=== PATIENT | female | born 1950 ===

== ENCOUNTER 2018-10-01 05:26 | Inpatient (IN) | payer OTHER ==
--- NOTE | 2018-09-30 15:13 | NUR ---
Write.my translation services used to obtained medical history of the patient with portable trackman : rakel ID# [id number].
[2018-10-01] VITALS (14 sets, daily range): BP systolic 100–135; BP diastolic 54–76
[~2018-10-01] VITALS: Ht 160 cm; Wt 74.8 kg
[~2018-10-01 05:26] MED LIST: NKM
[2018-10-01] MEDS ORDERED: ceFAZolin 1gm IVPB IVPB ONE ×2 (06:00)
[2018-10-01] MEDS ORDERED: oxyCONTIN 20mg tab ORAL ONE (06:00)
[2018-10-01] MEDS ORDERED: celeBREX 200mg Cap **SURGERY PATIENTS ONLY ORAL ONE (06:00)
[2018-10-01] MEDS ORDERED: fentaNYL 100 mcg/2 mL IV ONE (06:27)
[2018-10-01] MEDS ORDERED: Lidocaine 1% MPF 10mg/ml 5ml ONE ×2 (06:27→06:28)
[2018-10-01] MEDS ORDERED: Propofol 200mg/20ml IV ONE (06:27)
[2018-10-01] MEDS ORDERED: Midazolam 2mg/2ml Inj ONE (06:27)
[2018-10-01] MEDS ORDERED: Ropivacaine 5mg/ml Vial 30ml INJ ONE (06:28)
[2018-10-01] MEDS ORDERED: EPINEPHrine 1mg/1ml Amp ONE (06:31)
[2018-10-01] MEDS ORDERED: NeoSporin Gu Irrig 1ml Amp IRRIG ONE (06:31)
[2018-10-01] MEDS ORDERED: Bacitracin 50000 Units Vial ONE (06:31)
--- NOTE | 2018-10-01 06:58 | Pre-Procedure Note/Attestation ---
Pre-Procedure Note/Attestation Complete Prior to Procedure Planned Procedure: left Procedure Narrative: left total knee arthroplasty Indications for Procedure Pre-Operative Diagnosis: left knee arthritis Attestation I attest that I discussed the nature of the procedure; its benefits; risks and complications; and alternatives (and the risks and benefits of such alternatives ), prior to the procedure, with the patient (or the patient's legal automobile rental representative). I attest that, if there was a reasonable possibility of needing a blood transfusion, the patient (or the patient's legal automobile rental representative) was given the [facility] standardized written summary, pursuant to the Sly Jessica Blood Safety Act ([place] Health and Safety Code # 1645, as amended). I attest that I re-evaluated the patient just prior to the surgery and that there has been no change in the patient's H&P, except as documented below: none Gen Paniagua MD Oct 01, 2018 06:58
[2018-10-01] MEDS ORDERED: Tranexamic Acid 1,000 MG in NS 55 ML IV ONE (07:00)
[2018-10-01] MEDS ORDERED: NS Irrig 2000ml IRRIG ONE ×2 (07:14→07:30)
[2018-10-01] MEDS ORDERED: NS Irrig 1000ml IRRIG ONE (07:14)
[2018-10-01] MEDS ORDERED: HYDROmorphone 1mg/ml Carpuject SUBQ PRN (07:15)
[2018-10-01] MEDS ORDERED: HYDROcodone/Acetamin 5/325 tab ORAL PRN (07:15)
[2018-10-01] MEDS ORDERED: Milk of Magnesia 30ml Ud ORAL PRN (07:15)
[2018-10-01] MEDS ORDERED: Sterile Water For Irrig 2000ml IRRIG ONE (07:30)
[2018-10-01] MEDS ORDERED: LR 1000ml ONE (07:30)
[2018-10-01] MEDS ORDERED: NS Irrig 1000ml ONE (07:30)
--- NOTE | 2018-10-01 08:10 | Anethesia Preoperative Eval ---
Anesthesia Pre-op PMH/ROS General Date of Evaluation: Oct 01, 2018 Time of Evaluation: 06:52 Anesthesiologist: Abimbola ASA Score: ASA 2 Mallampati Score Class I : Soft palate, uvula, fauces, pillars visible Class II: Soft palate, uvula, fauces visible Class III: Soft palate, base of uvula visible Class IV: Only hard plate visible Mallampati Classification: Class II Surgeon: Siva Diagnosis: L knee DJD Surgical Procedure: L knee arthroplasty Anesthesia History: none Family History: no anesthesia problems Allergies: Coded Allergies: No Known Allergies (Unverified , 10/01/18) Patient NPO?: Yes NPO Date: Sep 30, 2018 NPO Time: 1999 Past Medical History Cardiovascular: Denies: HTN, CAD, NE, valve dz, arrhythmia, other Pulmonary: Denies: asthma, COPD, ANNALEE, other Gastrointestinal/Genitourinary: Reports: GERD; Denies: CRI, ESRD, other Neurologic/Psychiatric: Reports: other - chronic pain; Denies: dementia, CVA, depression/anxiety, TIA Endocrine: Denies: DM, hypothyroidism, steroids, other HEENT: Denies: cataract (L), cataract (R), glaucoma, KASHIA (L), KASHIA (R), other Hematology/Immune: Denies: anemia, DVT, bleeding disorder, other Musculoskeletal/Integumentary: Reports: OA, DJD; Denies: RA, DDD, edema, other Other: other - overweight PMH Narrative: as above PSxH Narrative: L knee arthroscopy, R bunionectomy Anesthesia Pre-op Phys. Exam Physician Exam Last Vital Signs Date Time Temp Pulse Resp B/P (MAP) Pulse Ox O2 Delivery O2 Flow Rate FiO2 10/01/18 05:53 Room Air 10/01/18 05:52 97.8 56 18 135/61 (85) 97 Constitutional: NAD Neurologic: CN 2-12 intact Cardiovascular: RRR Respiratory: CTA Gastrointestinal: S/NT/ND Airway Exam Mallampati Score: Class II MO: full Neck: flexible ROM: full Teeth: missing Dentures: no upper, no lower Anesthesia Pre-op A/P Labs see chart Studies Pre-op Studies: EKG - NSR Risk Assessment & Plan Assessment: ASA 2 Plan: SAB vs GA with femoral nerve block for postop pain control Status Change Before Surgery: No Pre-Antibiotics Drug: Ancef 2gr. Given Within 1 Hr of Incision: Yes Time Given: 07:25 Roman Daily MD Oct 01, 2018 08:10
[2018-10-01] MEDS ORDERED: LR 1000ml 1,000 ML IVLG SCH (08:11)
[2018-10-01] MEDS ORDERED: DiphenhydrAMINE 50mg/ml Inj IVP PRN (08:15)
[2018-10-01] MEDS ORDERED: Hydromorphone 0.5mg/0.5ml inj IVP PRN (08:15)
[2018-10-01] MEDS ORDERED: Ketorolac 30mg Inj IV PRN (08:15)
[2018-10-01] MEDS: Docusate 100mg cap ORAL SCH ×3 (09:00→17:26)
[2018-10-01] MEDS: oxyCONTIN 20mg tab ORAL SCH ×2 (09:00→21:22)
[2018-10-01] MEDS: celeBREX 200mg Cap **SURGERY PATIENTS ONLY ORAL SCH (09:00)
--- NOTE | 2018-10-01 09:38 | Brief Operative Note ---
Immediate Post Operative Note Operative Note Chief Complaint: left knee pain Pre-op Diagnosis: left knee arthritis Procedure: left total knee arthroplasty Post-op Diagnosis: same as pre-op Findings: consistent w/pre-op dx studies Surgeon: md mariangel Napping Machine Operator: ajay martinez Anesthesiologist: md whit Anesthesia: general Specimen: yes Complications: none Condition: stable Fluids: ns Estimated Blood Loss: minimal Drains: none Implant(s) used?: Yes - gonzalez and nephMegan Terry Oct 01, 2018 09:37
--- NOTE | 2018-10-01 09:50 | Immediate Post-Op Evaluation ---
Immediate Post-Op Evalulation Immediate Post-Op Evalulation Procedure: L TKA Date of Evaluation: Oct 01, 2018 Time of Evaluation: 09:49 IV Fluids: 1700 Blood Products: none Estimated Blood Loss: 100 Urinary Output: 150 Blood Pressure Systolic: 126 Blood Pressure Diastolic: 72 Pulse Rate: 65 Respiratory Rate: 20 O2 Sat by Pulse Oximetry: 99 Temperature (Fahrenheit): 97.7 Pain Score (1-10): 1 Nausea: No Vomiting: No Complications none Patient Status: awake, patent, none Hydration Status: adequate Roman Daily MD Oct 01, 2018 09:50
[2018-10-01] MEDS: D5 1/2NS w/KCl 20mEq 1,000 ML IV SCH ×2 (11:00→14:53)
--- NOTE | 2018-10-01 11:00 | NUR ---
NURSE NOTES:RECEIVED FR. PACU BY BED,S/P LEFT KNEE ARTHROPLASTY,SLEEPY BUT AROUSABLE,UNDER GENERAL/LEFT FEMORAL ANESTHESIA.PATIENT HAS SENSATION ON LEFT UPPER THIGH,LEFT KNEE DRSNG.C/D/I. NO C/O PAIN.WITH IMMOBILIZER ON.ON 2 LITERS N/C,GREEK SPEAKING WITH MINIMAL LIBYAN,DAUGHTER AT BEDSIDE.PLAN OF CARE DISCUSSED,WILL MONITOR
--- NOTE | 2018-10-01 11:56 | Diagnostic Imaging Report ---
Indications: Postoperative, status post left knee total arthroplasty Technique: Two views of the left knee Comparison: None Findings: Two postoperative views of the left knee demonstrate total knee arthroplasty, good anatomic alignment of the prosthesis. There is postsurgical soft tissue air. Overlying skin roland. Impression: Postoperative left knee, no unusual features.
--- NOTE | 2018-10-01 12:30 | NUR ---
NURSE NOTES:Neuro assessment done,patient has sensation on whole left knee,able to wiggle toes.tolerated clear liquid diet.
--- NOTE | 2018-10-01 13:30 | NUR ---
NURSE NOTES:on cpm at 45 deg.medicated for pain 7/10 with dilaudid 2mg.suq.with relief after 30 minutes,sleeping no adverse reaction.
[2018-10-01] MEDS: ceFAZolin sod 1 GM in D5W 55 ML IV SCH ×2 (14:53→23:01)
--- NOTE | 2018-10-01 15:06 | NUR ---
P.T Note: late entry 133 Order for CPM set up POD#0 to L knee received. Pt and daughter educated on the use of CPM and its benefits. CPM was set up and pt only tolerating 45 deg.VS 60 deg.as protocol. Pt requested for pain medication after set up. Pt positioned to maximum comfort, daughter present. CPM to be removed after 4-6 hrs of use. CPM endorsed to nursing at the end of P.T shift.
--- NOTE | 2018-10-01 17:40 | NUR ---
NURSE NOTES:TOLERATED 4HRS FR. CPM,PAIN LEVEL 4/10,BUT REFUSED FOR PAIN MED.AT THIS TIME.COMFORTABLE.
--- NOTE | 2018-10-01 18:15 | Operative Note - Dictated ---
DATE OF OPERATION: 10/01/2018 PREOPERATIVE DIAGNOSIS: Left knee end-stage arthritis with slight varus deformity. POSTOPERATIVE DIAGNOSIS: Left knee end-stage arthritis with slight varus deformity. PROCEDURE: Left total knee arthroplasty using Gan [employer]hew system, size 4 Legion femur, size 3 Akosua tibial component with a 32 mm all-poly patellar component, and 9 mm tibial insert ultra cross-linked polyethylene. SURGEON: Gen Paniagua M.D. LABOR STANDARDS DIRECTOR: Megan Townsend PA-C. ANESTHESIOLOGIST: Roman Daily M.D. ANESTHESIA: General LMA anesthesia combined with spinal block. ESTIMATED BLOOD LOSS: Less than 20 mL. COMPLICATIONS: None. BRIEF HISTORY: The patient is a pleasant 67-year-old female, who has had ongoing left knee pain. She failed nonoperative treatment. After full discussion of risks and benefits of surgery including infection, bleeding, neurovascular complications, possibility of malalignment, possible continued pain, possible loss of motion, possible infection requiring resection arthroplasty, possibility of DVT, PE and other complications that may arise, she opted for surgical treatment as described above. OPERATIVE PROCEDURE: The patient was brought to the operating room and was placed supine. All pressure points well padded. Spinal anesthesia was induced and tranexamic acid and preop antibiotics were given. The patient was given a light general anesthesia for comfort. The left knee was prepped and draped in usual sterile fashion. The left leg was then exsanguinated. Tourniquet was inflated to 275 mmHg. At this point, a standard anterior approach to the knee was undertaken. The incision was taken through the subcutaneous tissue. Medial parapatellar arthrotomy was performed and medial releases was performed. The menisci were removed. The patella was then everted and flexed. The rest of the meniscus posteriorly removed. At this point, the ACL and PCL were resected. At this point, intramedullary access into the femur was obtained using a drill. Intramedullary guide was placed in and a standard distal femoral cut was performed with 5 degrees of valgus. Once this was completed, sizing was performed and size 4 appeared to be the right size. Therefore, anterior, posterior, and chamfer cuts were performed using a size 4 femur. Once this was completed, a trial femur was applied and there was an excellent fit. The PEG holes were drilled. At this point, care was given to the tibia. Medial, lateral, and posterior retractors were placed in. All remnants of meniscus was removed. The tibia was subluxed anteriorly. At this point, the anterior tibial crest was marked and using the extramedullary guide, anatomical axis was recreated. The slope was recreated. The 9 mm was taken off the least-involved side, which was the lateral side. This took about 3 mm off the more involved side, which was the medial side. A tibial cut was performed in neutral anatomical axis and recreated the patient's slope. Once this was completed, the flexion-extension gap was checked and appeared to be perfect. At this point, sizing of the tibia was performed and size 3 appeared to be the right size. Therefore, a size 3 tibia was then placed and was punched without any complication. At this point, 9 mm poly insert was applied and the femoral component was applied and range of motion and stability was checked. There was excellent range of motion with full extension, 130 degrees of flexion, and stability at 0, 30 degrees, 45 degrees, and 90 degrees of flexion. The varus valgus stress testing was very stable. Anterior-posterior drawer testing was excellent. At this point, care was given to the patella. The patella was everted. It measured 24 mm. A standard patellar cut was performed using freehand technique and 14 mm was remaining. Sizing was performed and 32 mm patellar component appeared to be the right size. The PEG holes for the 32 mm patellar components were then drilled. At this point, all wounds were thoroughly irrigated and the trial components were removed. At this point, cement was mixed and knee was thoroughly irrigated and dried and the tibial component femoral component patella components were all cemented and all excess cement was removed. At this point, once the cement dried, a 9 mm tibial insert trial was applied, and again the range of motion and stability was perfect as described previously. Therefore, the trial was removed and actual 9 mm deep dish extra cross-linked polyethylene was then applied and locked in without any complication. Once this was completed, the range of motion and stability was checked and appeared to be perfect. All wounds were fully irrigated again. There was no excess cement that could be visualized. At this point, the tourniquet was deflated and there was minimal bleeding. At this point, any small bleeders were stopped. At this point, extensor mechanism was closed using #1 Vicryl suture. Subcutaneous tissue was closed using 2-0 Vicryl suture. Skin was closed using 3-0 Monocryl suture. Dermabond was applied and the patient was then taken to recovery room in stable condition. All lap counts and instrument counts were correct. Time-out was performed prior to initiating the surgery. Gen Paniagua M.D. DR: YONATHAN JOB#: [id number] CC:
--- NOTE | 2018-10-01 19:12 | NUR ---
CASE MANAGEMENT: INITIAL REVIEW 10/01/2018 67 YO F PRESENTED FOR SURGERY CC: LEFT KNEE PAIN PMHx: LEFT KNEE OA. SI:TRAUMATIC ARTHROPATHY OF LEFT KNEE. T 97.8 HR 56 RR 18 B/P 135/61 SATS 97% ON RA NO LABS TODAY IS:OR MEDS PATIENT ADMITTED TO MED/SURG 10/01/2018 @ 0704 DCP: PATIENT TO BE DISCHARGED TO HOME ONCE MEDICALLY CLEARED. PLAN OF CARE: DATE OF OPERATION: 10/01/2018 PREOPERATIVE DIAGNOSIS: Left knee end-stage arthritis with slight varus deformity. POSTOPERATIVE DIAGNOSIS: Left knee end-stage arthritis with slight varus deformity. PROCEDURE: Left total knee arthroplasty using [employer] and [employer] system, size 4 Legion femur, size 3 Akosua tibial component with a 32 mm all-poly patellar component, and 9 mm tibial insert ultra cross-linked polyethylene. Addendum: 10/01/18 at 1953 by Darlene Tabor CM INTERJESSICA HARDY
--- NOTE | 2018-10-01 19:14 | NUR ---
HAND-OFF: Report given to FATMATA LLAMAS RN.PATIENT STABLE.
--- NOTE | 2018-10-01 19:30 | NUR ---
NURSE NOTES: Received report from RUSLAN Ramey. Received pt lying in bed, AOX4, denies pain at this time, no distress noted. L knee surgical dressing C/D/I, knee immobilizer in place. IV R AC #20 patent and intact. IV fluid infusing as ordered. Bed in lowest position and locked, side rails up x 2, call light within reach. Will continue to monitor.
--- NOTE | 2018-10-01 22:14 | NUR ---
NURSE NOTES: Called Dr. Navi Noriega and informed MD pt pt's location. Per medication reconcilation, pt does not take any home meds. No new orders given.
[2018-10-02 04:00] VITALS: BP 106/54
[2018-10-02] MEDS: D5 1/2NS w/KCl 20mEq 1,000 ML IV SCH (04:18)
[2018-10-02 06:39] LABS: BASOPHILS % (AUTO) 0.7 % (0.0-2.0); EOSINOPHILS % (AUTO) 0.1 % (0.0-3.0); HEMATOCRIT 33.6 % (37.0-47.0); HEMOGLOBIN 11.1 G/DL (12.0-16.0); LYMPHOCYTES % (AUTO) 23.6 % (20.0-45.0); MEAN CORPUSCULAR VOLUME 88 FL (80-99); MONOCYTES % (AUTO) 8.1 % (1.0-10.0); NEUTROPHILS % (AUTO) 67.4 % (45.0-75.0); PLATELET COUNT 254 K/UL (150-450); RED BLOOD COUNT 3.82 M/UL (4.20-5.40); WHITE BLOOD COUNT 9.6 K/UL (4.8-10.8)
[2018-10-02] MEDS: HYDROcodone/Acetamin 7.5/325 tab ORAL PRN ×3 (06:53→23:34)
--- NOTE | 2018-10-02 07:06 | NUR ---
HAND-OFF: Report given to RUSLAN Ramey. Pt in stable condition.
--- NOTE | 2018-10-02 07:06 | NUR ---
NURSE NOTES:RECEIVED REPORT FR.JOSE LLAMAS,PATIENT AWAKE,A/OX4,ON 2LITERS N/C.WAS JUST MEDICATED FOR PAIN 02/08,LEFT KNEE DRSNG,CLEAN/DRY/INTACT/WITH IMMOBILIZER ON,ABLE TO WIGGLE TOES,WILL CONTINUE PLAN OF CARE.
[2018-10-02 08:00] VITALS: BP 108/54
--- NOTE | 2018-10-02 08:19 | Orthopedic Progress Note ---
Orthopedic - Progress Note Subjective Symptoms: c/o post-op knee pain Objective Laboratory Tests Test 10/02/18 05:10 White Blood Count 9.6 K/UL (4.8-10.8) Red Blood Count 3.82 M/UL (4.20-5.40) L Hemoglobin 11.1 G/DL (12.0-16.0) L Hematocrit 33.6 % (37.0-47.0) L Mean Corpuscular Volume 88 FL (80-99) Mean Corpuscular Hemoglobin 29.0 PG (27.0-31.0) Mean Corpuscular Hemoglobin Concent 32.9 G/DL (32.0-36.0) Red Cell Distribution Width 13.0 % (11.6-14.8) Platelet Count 254 K/UL (150-450) Mean Platelet Volume 6.4 FL (6.5-10.1) L Neutrophils (%) (Auto) 67.4 % (45.0-75.0) Lymphocytes (%) (Auto) 23.6 % (20.0-45.0) Monocytes (%) (Auto) 8.1 % (1.0-10.0) Eosinophils (%) (Auto) 0.1 % (0.0-3.0) Basophils (%) (Auto) 0.7 % (0.0-2.0) Last 24 Hour Vital Signs Date Time Temp Pulse Resp B/P (MAP) Pulse Ox O2 Delivery O2 Flow Rate FiO2 10/02/18 04:00 98.9 63 17 106/54 (71) 97 10/01/18 23:52 98.7 71 17 127/70 (89) 97 10/01/18 21:00 Nasal Cannula 2.0 10/01/18 20:00 98.9 64 17 119/63 (81) 97 10/01/18 16:00 97.5 64 19 109/57 (74) 96 10/01/18 13:30 98.0 64 18 106/58 (74) 96 10/01/18 11:30 98.0 59 18 100/60 (73) 94 10/01/18 11:00 Nasal Cannula 2.0 10/01/18 11:00 97.2 66 18 104/75 (85) 94 10/01/18 10:40 63 18 106/61 99 Nasal Cannula 3 10/01/18 10:30 98.0 62 13 125/62 99 Nasal Cannula 3 10/01/18 10:15 60 15 111/54 99 Nasal Cannula 3 10/01/18 10:05 68 13 118/60 99 Simple Mask 6 10/01/18 09:55 65 15 131/67 100 Simple Mask 6 10/01/18 09:50 79 17 126/72 100 Simple Mask 6 10/01/18 09:50 65 20 99 10/01/18 09:45 97.4 72 20 116/76 100 Simple Mask 6 Intake and Output 10/01/18 10/02/18 19:00 07:00 Intake Total 2475 ml 1155 ml Output Total 525 ml 650 ml Balance 1950 ml 505 ml Intake Oral 600 ml 200 ml IV Total 1875 ml 955 ml Output Urine Total 425 ml 650 ml Estimated Blood Loss 100 ml Laboratory Tests Test 10/02/18 05:10 White Blood Count 9.6 K/UL (4.8-10.8) Red Blood Count 3.82 M/UL (4.20-5.40) L Hemoglobin 11.1 G/DL (12.0-16.0) L Hematocrit 33.6 % (37.0-47.0) L Mean Corpuscular Volume 88 FL (80-99) Mean Corpuscular Hemoglobin 29.0 PG (27.0-31.0) Mean Corpuscular Hemoglobin Concent 32.9 G/DL (32.0-36.0) Red Cell Distribution Width 13.0 % (11.6-14.8) Platelet Count 254 K/UL (150-450) Mean Platelet Volume 6.4 FL (6.5-10.1) L Neutrophils (%) (Auto) 67.4 % (45.0-75.0) Lymphocytes (%) (Auto) 23.6 % (20.0-45.0) Monocytes (%) (Auto) 8.1 % (1.0-10.0) Eosinophils (%) (Auto) 0.1 % (0.0-3.0) Basophils (%) (Auto) 0.7 % (0.0-2.0) Wound: clean, dry, intact Drains: none Neuro Status: normal Vascular Status: normal Additional Comments xray reviewed: excellent alignment Assessment Post-op Diagnosis POD 1 Procedure Performed left total knee arthroplasty Plan Plan: PT, pain management, discharge plan - likely d/c Sunday. Megan Townsend Oct 02, 2018 08:19
[2018-10-02] MEDS: Docusate 100mg cap ORAL SCH ×3 (08:29→18:00)
[2018-10-02] MEDS: celeBREX 200mg Cap **SURGERY PATIENTS ONLY ORAL SCH (08:30)
[2018-10-02] MEDS: oxyCONTIN 20mg tab ORAL SCH ×2 (08:30→21:24)
[2018-10-02] MEDS: Enoxaparin 30mg Inj SUBQ SCH ×2 (08:35→21:30)
--- NOTE | 2018-10-02 10:44 | 48 Hour Post Anesthesia Eval ---
Post Anesthesia Evaluation Procedure: L TKA Date of Evaluation: Oct 02, 2018 Time of Evaluation: 10:43 Blood Pressure Systolic: 118 0: 76 Pulse Rate: 72 Respiratory Rate: 20 Temperature (Fahrenheit): 97.6 O2 Sat by Pulse Oximetry: 98 Airway: patent Nausea: No Vomiting: No Pain Intensity: 3 Hydration Status: adequate Cardiopulmonary Status: stable Mental Status/LOC: patient returned to baseline Follow-up Care/Observations: n/a Post-Anesthesia Complications: none Follow-up care needed: N/A Roman Daily MD Oct 02, 2018 10:44
[2018-10-02 12:00] VITALS: BP 134/61
--- NOTE | 2018-10-02 12:30 | NUR ---
NURSE NOTES:TOLERATED 2HRS IN CPM AT 70 DEG.MEDICATED WITH DILAUDID 2MG SUBQ FOR PAIN 10/10.ICE PACK APPLIED TO LEFT KNEE.
--- NOTE | 2018-10-02 13:02 | NUR ---
NURSE NOTES:SLEEPING SOUNDLY,APPEARS COMFORTABLE.
--- NOTE | 2018-10-02 13:51 | NUR ---
P.T NOTE: P.T EVALUATION COMPLETED AND TREATMENT INITIATED PER TKR PROTOCOL. PLEASE REFER TO P.T EVALUATION FOR CURRENT FUNCTIONAL STATUS. SKILLED P.T SERVICE IS WARRANTED TO MAINTAIN AND INCREASE L KNEE ROM , STRENGTH, BALANCE AND ENDURANCE TO IMPROVE INDEPENDENCE IN FUNCTIONAL MOBILITY AND GAIT/AMBULATION. RECOMMEND HOME P.T FOR SNF FOR SHORT TERM REHAB AT D/C. DME TO INCLUDE FWW AND RAISED TOILET SEAT. THANK YOU FOR THIS REFERRAL.
--- NOTE | 2018-10-02 14:00 | NUR ---
NURSE NOTES:AMBULATED WITH PHYSICAL THERAPY X2 AT 30 FT EACH TIME.TORRE TO D/C TOMORROW.
--- NOTE | 2018-10-02 14:26 | NUR ---
CASE MANAGEMENT:REVIEW 10/02/18 SI: POD #1 S/P TOTAL KNEE ARTHROPLASTY 98.1 63 17 134/61 97% ON 2L/NC H/H-11.1/33.6 IS: LOVENOX SQ Q12 OXYCONTIN PO Q12 CELEBREX PO QD DILAUDID SQ Q3HRS PRN : MED/SURG STATUS 3 EAST
--- NOTE | 2018-10-02 14:33 | NUR ---
DISCHARGE PLANNING MESSAGE LEFT FOR ADJUSTOR: JIMY T: [phone] CLAIM #[id number] DOI 08/20/13 REQUESTED 3:1 COMMODE Addendum: 10/02/18 at 1627 by DELMI HURTADO CM RECEIVED A MESSAGE FROM JOSH Frye/BUD PT IS AUTHORIZED FOR 3 DAY [facility]UR[facility], RUSLAN [facility] AND SNF FOR 1 WK ARE AUTHORIZED CALL FOR D/C PLANNING NEEDS P:[phone] F:[phone]
[2018-10-02 16:00] VITALS: BP 105/60
--- NOTE | 2018-10-02 16:45 | NUR ---
NURSE NOTES:MEDICATED WITH ZOFRAN IV FOR VOMITING,HAD EMESIS OF 200CC LIQUID,WILL MONITOR.
--- NOTE | 2018-10-02 18:41 | History and Physical ---
History of Present Illness General Date patient seen: Oct 02, 2018 Time patient seen: 18:38 Reason for Hospitalization: total knee arthroplasty Present Illness HPI THIS IS AN UNFORTUNATE FEMALE WITH HISTORY OF KNEE ARTHRITIS S/P TOTLA KNEE ARTHROPLASTY SHE DENIES ANY CHES TPAIN N NO SOB Allergies: Coded Allergies: No Known Allergies (Unverified , 10/01/18) Medication History Scheduled No Known Medications* (NKM - No Known Medications*), 0 ., (Reported) Patient History Healthcare decision maker LITA ESTEVES -DAUGHTER Resuscitation status Full Code Advanced Directive on File Review of Systems Eye: Reports: no symptoms ENT: Reports: no symptoms Respiratory: Reports: no symptoms ROS Narrative STEWART SSOME PAIN SITTING IN THE BED. Physical Exam General Appearance: WD/WN HEENT: normocephalic, atraumatic Neck: supple Respiratory/Chest: lungs clear Cardiovascular/Chest: normal rate Abdomen: non tender, soft Extremities: other - NO EDEMA Last 24 Hour Vital Signs Date Time Temp Pulse Resp B/P (MAP) Pulse Ox O2 Delivery O2 Flow Rate FiO2 10/02/18 16:00 97.6 89 18 105/60 (75) 97 10/02/18 12:00 98.1 63 17 134/61 (85) 97 10/02/18 10:44 72 20 98 10/02/18 08:30 Nasal Cannula 2.0 10/02/18 08:00 98.8 65 17 108/54 (72) 97 10/02/18 04:00 98.9 63 17 106/54 (71) 97 10/01/18 23:52 98.7 71 17 127/70 (89) 97 10/01/18 21:00 Nasal Cannula 2.0 10/01/18 20:00 98.9 64 17 119/63 (81) 97 Intake and Output 10/01/18 10/02/18 19:00 07:00 Intake Total 2475 ml 1155 ml Output Total 525 ml 650 ml Balance 1950 ml 505 ml Intake Oral 600 ml 200 ml IV Total 1875 ml 955 ml Output Urine Total 425 ml 650 ml Estimated Blood Loss 100 ml Laboratory Tests Test 10/02/18 05:10 White Blood Count 9.6 K/UL (4.8-10.8) Red Blood Count 3.82 M/UL (4.20-5.40) L Hemoglobin 11.1 G/DL (12.0-16.0) L Hematocrit 33.6 % (37.0-47.0) L Mean Corpuscular Volume 88 FL (80-99) Mean Corpuscular Hemoglobin 29.0 PG (27.0-31.0) Mean Corpuscular Hemoglobin Concent 32.9 G/DL (32.0-36.0) Red Cell Distribution Width 13.0 % (11.6-14.8) Platelet Count 254 K/UL (150-450) Mean Platelet Volume 6.4 FL (6.5-10.1) L Neutrophils (%) (Auto) 67.4 % (45.0-75.0) Lymphocytes (%) (Auto) 23.6 % (20.0-45.0) Monocytes (%) (Auto) 8.1 % (1.0-10.0) Eosinophils (%) (Auto) 0.1 % (0.0-3.0) Basophils (%) (Auto) 0.7 % (0.0-2.0) Height (Feet): 5 Height (Inches): 3.00 Weight (Pounds): 165 Medications Current Medications Medications (Trade) Dose Ordered Sig/Noni Route PRN Reason Start Time Stop Time Status Last Admin Dose Admin Acetaminophen (Tylenol) 650 mg Q4H PRN ORAL temp>100.2 or headache 10/01/18 07:15 10/31/18 07:14 Acetaminophen/ Hydrocodone Bitart ([place] 5/325) 2 tab Q4H PRN ORAL pain scores 4-10 10/01/18 07:15 10/08/18 07:14 Acetaminophen/ Hydrocodone Bitart ([place] 7.5/325) 1 tab Q4H PRN ORAL Mild Pain (Pain Scale 1-3) 10/01/18 07:15 10/08/18 07:14 10/02/18 06:53 Celecoxib (CeleBREX) 200 mg DAILY ORAL 10/01/18 09:00 10/31/18 08:59 10/02/18 08:30 Docusate Sodium (Colace) 100 mg THREE TIMES A DAY ORAL 10/01/18 09:00 10/31/18 08:59 10/02/18 12:31 Enoxaparin Sodium (Lovenox) 30 mg EVERY 12 HOURS SUBQ 10/02/18 09:00 11/01/18 08:59 10/02/18 08:35 Ferrous Sulfate (Feosol) 325 mg THREE TIMES A DAY ORAL 10/01/18 09:00 10/31/18 08:59 10/02/18 12:31 Hydromorphone HCl (Dilaudid) 1 mg Q4H PRN SUBQ Mild Pain (Pain Scale 1-3) 10/01/18 07:15 10/08/18 07:14 Hydromorphone HCl (Dilaudid) 2 mg Q3H PRN SUBQ Severe Pain (Pain Scale 7-10) 10/01/18 07:15 10/08/18 07:14 10/02/18 12:32 Hydromorphone HCl (Dilaudid) 2 mg Q4H PRN SUBQ Moderate Pain (Pain Scale 4-6) 10/01/18 07:15 10/08/18 07:14 Magnesium Hydroxide (Mom) 30 ml DAILYPRN PRN ORAL Constipation 10/01/18 07:15 10/31/18 07:14 Ondansetron HCl (Zofran) 4 mg Q6H PRN IVP Nausea & Vomiting 10/01/18 07:15 10/31/18 07:14 10/02/18 16:13 Oxycodone HCl (OxyCONTIN) 20 mg EVERY 12 HOURS ORAL 10/01/18 09:00 10/08/18 08:59 10/02/18 08:30 Temazepam (Restoril) 7.5 mg HSPRN PRN ORAL Insomnia 10/01/18 07:15 10/08/18 07:14 Assessment/Plan Status Narrative S/P TOTAL KNEE ARTHROPLASTY PERIOPERATIE EXPECTED BLOO DLOSS POT OP ANEMIA Assessment/Plan PT OT DVT OPROPHYALXIS PAINCONTROL Navi Noriega MD Oct 02, 2018 18:41
--- NOTE | 2018-10-02 19:05 | NUR ---
HAND-OFF: Report given to amanda garcia.patient stable..
--- NOTE | 2018-10-02 19:30 | NUR ---
NURSE NOTES: Patient in bed, awake,in pain, will medicate as ordered. Instructed the use of call light. Call light and needs in reach. Bed in lowest position and lock engaged. Will continue to monitor.
[2018-10-02 20:00] VITALS: BP 127/65
[2018-10-03] VITALS (7 sets, daily range): BP systolic 100–129; BP diastolic 46–77
[2018-10-03] MEDS: HYDROcodone/Acetamin 7.5/325 tab ORAL PRN ×2 (05:03→13:02)
[2018-10-03 07:03] LABS: BASOPHILS % (AUTO) 0.7 % (0.0-2.0); EOSINOPHILS % (AUTO) 0.4 % (0.0-3.0); HEMATOCRIT 30.3 % (37.0-47.0); HEMOGLOBIN 10.2 G/DL (12.0-16.0); LYMPHOCYTES % (AUTO) 16.2 % (20.0-45.0); MEAN CORPUSCULAR VOLUME 87 FL (80-99); MONOCYTES % (AUTO) 7.7 % (1.0-10.0); PLATELET COUNT 224 K/UL (150-450); RED BLOOD COUNT 3.49 M/UL (4.20-5.40); RED CELL DISTRIBUTION WIDTH 12.8 % (11.6-14.8); WHITE BLOOD COUNT 9.8 K/UL (4.8-10.8)
--- NOTE | 2018-10-03 07:28 | Orthopedic Progress Note ---
Orthopedic - Progress Note Subjective Symptoms: c/o post-op knee pain Objective Last 24 Hour Vital Signs Date Time Temp Pulse Resp B/P (MAP) Pulse Ox O2 Delivery O2 Flow Rate FiO2 10/03/18 04:00 99.8 75 18 107/53 (71) 98 10/03/18 00:00 99.2 72 18 108/50 (69) 98 10/02/18 21:00 Nasal Cannula 2.0 10/02/18 20:00 98.6 70 18 127/65 (85) 98 10/02/18 16:00 97.6 89 18 105/60 (75) 97 10/02/18 12:00 98.1 63 17 134/61 (85) 97 10/02/18 10:44 72 20 98 10/02/18 08:30 Nasal Cannula 2.0 10/02/18 08:00 98.8 65 17 108/54 (72) 97 Intake and Output 10/02/18 10/03/18 18:59 06:59 Intake Total 675 ml Output Total 700 ml 2350 ml Balance -25 ml -2350 ml Intake Oral 600 ml IV Total 75 ml Output Urine Total 500 ml 2350 ml Emesis 200 ml Laboratory Tests Test 10/03/18 05:50 White Blood Count 9.8 K/UL (4.8-10.8) Red Blood Count 3.49 M/UL (4.20-5.40) L Hemoglobin 10.2 G/DL (12.0-16.0) L Hematocrit 30.3 % (37.0-47.0) L Mean Corpuscular Volume 87 FL (80-99) Mean Corpuscular Hemoglobin 29.2 PG (27.0-31.0) Mean Corpuscular Hemoglobin Concent 33.7 G/DL (32.0-36.0) Red Cell Distribution Width 12.8 % (11.6-14.8) Platelet Count 224 K/UL (150-450) Mean Platelet Volume 6.2 FL (6.5-10.1) L Neutrophils (%) (Auto) 75.0 % (45.0-75.0) Lymphocytes (%) (Auto) 16.2 % (20.0-45.0) L Monocytes (%) (Auto) 7.7 % (1.0-10.0) Eosinophils (%) (Auto) 0.4 % (0.0-3.0) Basophils (%) (Auto) 0.7 % (0.0-2.0) Wound: clean, dry, intact Drains: none Neuro Status: normal Assessment Post-op Diagnosis L TKA POD #2 doing well Plan Plan: PT, pain management, discharge plan Additional Comments Monitor low grade fever and encourage incentive spirometer. Gen Paniagua MD Oct 03, 2018 07:28
--- NOTE | 2018-10-03 07:41 | NUR ---
HAND-OFF: Report given to RUSLAN Russell.
[2018-10-03] MEDS: oxyCONTIN 20mg tab ORAL SCH ×2 (08:09→21:24)
[2018-10-03] MEDS: Docusate 100mg cap ORAL SCH ×3 (08:10→18:44)
[2018-10-03] MEDS: celeBREX 200mg Cap **SURGERY PATIENTS ONLY ORAL SCH (08:10)
[2018-10-03] MEDS: Enoxaparin 30mg Inj SUBQ SCH ×2 (08:13→21:25)
--- NOTE | 2018-10-03 09:52 | NUR ---
CASE MANAGEMENT:REVIEW 10/03/18 SI: POD #1 S/P TOTAL KNEE ARTHROPLASTY 99.8 75 18 107/53 98% on ra H/H-10.2.3 IS: LOVENOX SQ Q12 OXYCONTIN PO Q12 CELEBREX PO QD DILAUDID SQ Q3HRS PRN : MED/SURG STATUS 3 EAST
--- NOTE | 2018-10-03 09:58 | NUR ---
DISCHARGE PLANNING /DME SPOKE WITH JOSH T: [phone] F; [phone]) PER JOSH PATIENT ALREADY HAS THE FOLLOWING *3:1 COMMODE *CPM *RAISED TOILET SEAT *COLD THERAPY MACHINE
--- NOTE | 2018-10-03 11:30 | NUR ---
NURSE NOTES: Spoke with Felisha BANSAL, regarding plans for DC to rehab tomorrow. Provided daughter name and number to contact. (Shea [phone])
--- NOTE | 2018-10-03 12:55 | NUR ---
NURSE NOTES: Called pharmacy, spoke with Janay, regarding, Tylenol given earlier and patient requesting Harlan pain medication, okay to give, however keep Acetaminophen maximum dose noted.
--- NOTE | 2018-10-03 14:07 | NUR ---
NEW DISCHARGE PLAN REQUEST HAS BEEN MADE FOR ACUTE REHAB UNIT UPON DISCHARGE AND NOT SNF WAITING TO HEAR BACK Addendum: 10/03/18 at 1413 by MURRAY PALOMARES LVN [facility]
--- NOTE | 2018-10-03 17:00 | NUR ---
NURSE NOTES: Cowan catheter discontinued at 1215, (output 1400), patient had first void at 1700 y/cl urine in bathroom. Encouraged PO intake. No complains of urinary burning, difficulty or retention. Will continue to monitor.
--- NOTE | 2018-10-03 19:25 | NUR ---
HAND-OFF: Report given to Gareth MERCER.
--- NOTE | 2018-10-03 19:57 | NUR ---
NURSE NOTES: Received patient awake in bed, able to verbalize needs, no c/o pain at this time, no s/s of acute distress. SCD noted on R leg, surgical site noted on L knee. IV site asymptomatic, dressing reinforced. Safety and fall precautions taken, call light and belongings within reach.
[2018-10-04] VITALS: BP 116/43
[2018-10-04 04:00] VITALS: BP 105/61
[2018-10-04 06:14] LABS: BASOPHILS % (AUTO) 0.9 % (0.0-2.0); EOSINOPHILS % (AUTO) 0.8 % (0.0-3.0); HEMATOCRIT 28.8 % (37.0-47.0); HEMOGLOBIN 9.6 G/DL (12.0-16.0); MEAN CORPUSCULAR VOLUME 87 FL (80-99); MONOCYTES % (AUTO) 6.4 % (1.0-10.0); NEUTROPHILS % (AUTO) 67.8 % (45.0-75.0); PLATELET COUNT 240 K/UL (150-450); RED CELL DISTRIBUTION WIDTH 12.9 % (11.6-14.8); WHITE BLOOD COUNT 8.3 K/UL (4.8-10.8)
--- NOTE | 2018-10-04 07:14 | NUR ---
HAND-OFF: Report given to RUSLAN Sullivan.
--- NOTE | 2018-10-04 07:15 | NUR ---
NURSE NOTES: Report received from outgoing nurse, rounds made. Patient alert, oriented x4, calm. Denies SOB on RA, pain, NV. IV heplock noted with blood leaking, discontinued. Left knee dressing CDI, osiel hose in place. CMS +, wiggles, skin warm, no NT, pedal pulses palpable. Call light in reach, bed in lowest position, will continue to monitor.
[2018-10-04 08:00] VITALS: BP 122/71
--- NOTE | 2018-10-04 08:20 | Orthopedic Progress Note ---
Orthopedic - Progress Note Subjective Symptoms: improved Objective Laboratory Tests Test 10/04/18 05:40 White Blood Count 8.3 K/UL (4.8-10.8) Red Blood Count 3.30 M/UL (4.20-5.40) L Hemoglobin 9.6 G/DL (12.0-16.0) L Hematocrit 28.8 % (37.0-47.0) L Mean Corpuscular Volume 87 FL (80-99) Mean Corpuscular Hemoglobin 29.2 PG (27.0-31.0) Mean Corpuscular Hemoglobin Concent 33.5 G/DL (32.0-36.0) Red Cell Distribution Width 12.9 % (11.6-14.8) Platelet Count 240 K/UL (150-450) Mean Platelet Volume 6.7 FL (6.5-10.1) Neutrophils (%) (Auto) 67.8 % (45.0-75.0) Lymphocytes (%) (Auto) 24.0 % (20.0-45.0) Monocytes (%) (Auto) 6.4 % (1.0-10.0) Eosinophils (%) (Auto) 0.8 % (0.0-3.0) Basophils (%) (Auto) 0.9 % (0.0-2.0) Last 24 Hour Vital Signs Date Time Temp Pulse Resp B/P (MAP) Pulse Ox O2 Delivery O2 Flow Rate FiO2 10/04/18 04:00 98.9 76 18 105/61 (76) 96 10/04/18 00:00 99.0 77 18 116/43 (67) 95 10/03/18 21:00 Room Air 10/03/18 20:00 98.1 71 18 100/46 (64) 96 10/03/18 16:00 99.6 66 18 109/52 (71) 95 10/03/18 12:15 Room Air 10/03/18 12:00 98.5 64 18 106/53 (70) 96 10/03/18 09:00 Room Air 10/03/18 09:00 98.5 64 18 106/53 (70) 96 Intake and Output 10/03/18 10/04/18 18:59 06:59 Intake Total 600 ml Balance 600 ml Intake Oral 600 ml # Voids 4 3 Laboratory Tests Test 10/04/18 05:40 White Blood Count 8.3 K/UL (4.8-10.8) Red Blood Count 3.30 M/UL (4.20-5.40) L Hemoglobin 9.6 G/DL (12.0-16.0) L Hematocrit 28.8 % (37.0-47.0) L Mean Corpuscular Volume 87 FL (80-99) Mean Corpuscular Hemoglobin 29.2 PG (27.0-31.0) Mean Corpuscular Hemoglobin Concent 33.5 G/DL (32.0-36.0) Red Cell Distribution Width 12.9 % (11.6-14.8) Platelet Count 240 K/UL (150-450) Mean Platelet Volume 6.7 FL (6.5-10.1) Neutrophils (%) (Auto) 67.8 % (45.0-75.0) Lymphocytes (%) (Auto) 24.0 % (20.0-45.0) Monocytes (%) (Auto) 6.4 % (1.0-10.0) Eosinophils (%) (Auto) 0.8 % (0.0-3.0) Basophils (%) (Auto) 0.9 % (0.0-2.0) Wound: clean, dry, intact Drains: none Neuro Status: normal Vascular Status: normal Assessment Post-op Diagnosis POD 3 Procedure Performed left total knee arthroplasty Plan Plan: discharge plan - d/c today to rehab. f/u Dr august 2 weeks Megan Townsend Oct 04, 2018 08:20
--- NOTE | 2018-10-04 08:21 | Discharge Summary ---
Discharge Summary Hospital Course Date of Admission Oct 01, 2018 at 05:26 Date of Discharge 10/04/18 Admitting Diagnosis knee arthritis Reason for Hospitalization: s/p left knee arthritis HPI Manda Barber is a 67 year old female who was admitted on Oct 01, 2018 at 05: 26 for Traumatic Arthropathy Of Left Knee Consultations md Hari Procedures left tka Hospital Course benign Discharge Condition Upon Discharge: improving, stable Discharge Disposition Patient was discharged to rehab Megan Townsend Oct 04, 2018 08:21
[2018-10-04] MEDS: Docusate 100mg cap ORAL SCH ×3 (08:40→17:40)
[2018-10-04] MEDS: celeBREX 200mg Cap **SURGERY PATIENTS ONLY ORAL SCH (08:40)
[2018-10-04] MEDS: oxyCONTIN 20mg tab ORAL SCH (08:41)
[2018-10-04] MEDS: Enoxaparin 30mg Inj SUBQ SCH (08:43)
--- NOTE | 2018-10-04 10:45 | NUR ---
DISCHARGE PLAN BUSINESS TEST ANALYST IS AWARE OF DISCHARGE ORDER WAITING FOR [facility] TO GIVE ROOM NUMBER Addendum: 10/04/18 at 1047 by MURRAY PALOMARES LVN LVN FOR TRANSPORTATION CALL [employer] T: [phone] FOLLOW PROMPTS CLAIM #[id number]
[2018-10-04 12:00] VITALS: BP 120/68
[2018-10-04 16:00] VITALS: BP 124/60
--- NOTE | 2018-10-04 16:42 | NUR ---
DISCHARGE PLANNED PATIENT HAS BE[facility] ACCE[facility] [place] [address] [facility] [address] [address] T: [phone] FOR NURSE TO NURSE REPORT ACCEPTING PHYSICIAN IS DR SKINNER TRANSPORTATION HAS BEEN ARRANGED THRU [employer] T: [phone]. SPOKE WITH JOAQUINA Fisher WHO SAID SHE WILL TRY TO ARRANGE ROOM SERVICE ASSOCIATE FOR 6PM PROVIDED JOAQUINA WITH PHONE NUMBER TO NURSES STATION [phone] PATIENT'S CLAIM NUMBER IS #[id number]
--- NOTE | 2018-10-04 17:00 | NUR ---
NURSE NOTES: Report given to Gen [facility]CER at [facility] [place]. Patient to transfer via ambulance at 1800. Patient and daughter Shae mcgarry.
[2018-10-04] MEDS: HYDROcodone/Acetamin 7.5/325 tab ORAL PRN (17:41)
--- NOTE | 2018-10-04 18:10 | NUR ---
NURSE NOTES: 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
[2018-10-04] MEDS ORDERED: NORCO 7.5-3251 EACH ORAL (18:13)
[2018-10-04] MEDS ORDERED: OXYCONTIN20 MG ORAL (18:14)
[2018-10-04] MEDS ORDERED: CELEBREX200 MG ORAL (18:15)
[2018-10-04] MEDS ORDERED: LOVENOX10 MG SUBQ (18:15)
[2018-10-04] MEDS ORDERED: COLACE100 MG ORAL (18:16)
[2018-10-04] MEDS ORDERED: MILK OF MA400 MG/51 ORAL (18:18)
[2018-10-04] MEDS ORDERED: FERROUS SULFAT325 MG ORAL (18:18)
[2018-10-04] MEDS ORDERED: NORCO 5-325 TA1 EACH ORAL (18:19)
[2018-10-04] MEDS ORDERED: RESTORIL7.5 MG ORAL (18:21)
[2018-10-04] MEDS ORDERED: ACETAMINOPHEN120 MG RECTAL (18:23)
[2018-10-04] MEDS ORDERED: ACETAMINOPHEN325 M1 ORAL (18:23)
== END 2018-10-04 19:30 | disposition short-term general hospital (02) | DRG 470 ==
LOC: SDSOVERFLO 05:26 → 3E 10:20
PROC: 0SRD0J9 Replacement of Left Knee Joint with Synthetic Substitute, Cemented, Open Approach (ICD-10-PCS; principal; 2018-10-01 07:00)
DX: M17.12 Unilateral primary osteoarthritis, left knee (principal)
CPT/HCPCS: 36415; 85025; 86850; 86900; 86901; 87081; 94003; 94150; J2250; J2405